=== PATIENT | female | born 1990 | race American Indian/Alaskan Native ===

== ENCOUNTER 2022-07-07 10:44 | Emergency (ER) | payer MEDICAID, OTHER ==
[2022-07-07] MEDS ORDERED: Lidocaine 1% 10 ML MDV INJECT ONE (11:11)
[2022-07-07] MEDS ORDERED: Bupivacaine 0.5% 10 ML SDV INJECT ONE (11:11)
[2022-07-07] MEDS ORDERED: Cephalexin 500 MG Cap PO ONE (12:07)
== END 2022-07-07 12:21 | disposition home or self-care (01) ==
LOC: JD.ED 10:44
DX: S61.213A Laceration without foreign body of left middle finger without damage to nail, initial encounter (principal); J45.909 Unspecified asthma, uncomplicated; Z88.0 Allergy status to penicillin; Z88.1 Allergy status to other antibiotic agents; Z88.5 Allergy status to narcotic agent; W22.8XXA Striking against or struck by other objects, initial encounter; Y92.89 Other specified places as the place of occurrence of the external cause; Y99.0 Civilian activity done for income or pay
CPT/HCPCS: 12001; 73140; 99283; A9270; J3490

== ENCOUNTER 2022-07-29 14:23 | Emergency (ER) | payer OTHER | END 2022-07-29 14:37 | LOC: JD.ED 14:23 | DX: Z48.02 Encounter for removal of sutures (principal) | CPT/HCPCS: 99281 ==

== ENCOUNTER 2022-08-30 15:35 | Emergency (ER) | payer OTHER | END 2022-08-30 18:00 | disposition home or self-care (01) | LOC: JD.ED 15:35 | DX: K62.5 Hemorrhage of anus and rectum (principal); J45.909 Unspecified asthma, uncomplicated; Z88.5 Allergy status to narcotic agent; Z88.0 Allergy status to penicillin; Z88.1 Allergy status to other antibiotic agents | CPT/HCPCS: 99282; 99283 ==

== ENCOUNTER 2022-10-12 10:06 | Emergency (ER) | payer OTHER | END 2022-10-12 11:15 | disposition home or self-care (01) | LOC: JD.ED 10:06 | DX: S67.191A Crushing injury of left index finger, initial encounter (principal); S60.022A Contusion of left index finger without damage to nail, initial encounter; Z88.5 Allergy status to narcotic agent; Z88.1 Allergy status to other antibiotic agents; Z88.0 Allergy status to penicillin; W23.1XXA Caught, crushed, jammed, or pinched between stationary objects, initial encounter | CPT/HCPCS: 73140-26-F3; 73140-F3; 99283 ==